=== PATIENT | male | born 1960 | race Caucasian/White ===

== ENCOUNTER 2024-11-13 14:30 | Emergency (ER) | payer OTHER, SELFPAY ==
--- NOTE | ~2024-11-13 | XR_ITS ---
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 RESULT: Lines, tubes, and devices: None. Lungs and pleura: Mild emphysematous/senescent change. Calcified left midlung granuloma. No focal co nsolidation, pleural effusion, or pneumothorax. Cardiomediastinal silhouette: Unremarkable. Other: No acute osseous or upper abdominal finding. IMPRESSION: No acute cardiopulmonary process. Reviewed, dictated and finalized at location K. MANAGER
--- OUTSIDE RECORDS SUMMARY | 2024-11-13 14:39 | XMS_ITS | Clinical Summary ---
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 Name Role Phone Unavailable Primary Care Provider Unavailabl e Allergies Active Allergy Reactions Criticality Noted Date Comments Penicillins Hives 06/27/2017 Sulfa Antibiotics Hives 06/27/2017 Medications predniSONE (DELTASONE) 10 MG Tablet Take 4 tabs po daily days 1-6, then 2 tabs po daily days 7-9, then 1 tab po daily days 10-12 33 Tab 06/27/2017 Active Social History Tobacco Use Types Packs/Day Years Used Date Smoking Tobacco: Former Smokeless Tobacco: Never Alcohol Use Standard Drinks/Week Comments Yes 0 (1 standard drink = 0.6 oz pur e alcohol) occasionally Sex and Gender Information Value Date Recorded Sex Assigned at Not on file Legal Sex Male 12:11 AM CDT Gender Identity Not on file Sexual Orientation Not on file Last Filed Vital Signs Vital Sign Reading Time Taken Comments Blood Pressure 137/86 06/27/2017 3:23 PM CDT Pulse 74 06/27/2017 3:23 PM CDT Temperature 36.7 C (98.1 F) 06/27/2017 3:23 PM CDT Respiratory Rate - - Oxygen Saturation 95% 06/27/2017 3:23 PM CDT Inhaled Oxygen Concentration - - Weight 108.9 kg (240 lb) 06/27/2017 3:23 PM CDT Height 175.3 cm (5' 9 ) 06/27/2017 3:23 PM CDT Body Mass Index 35.44 06/27/2017 3:23 PM CDT Plan of Treatment Not on file
--- OUTSIDE RECORDS SUMMARY | 2024-11-13 14:39 | XMS_ITS | Continuity of Care Document ---
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 It does not include entries that were removed or entered in error. Problem Status Onset Date Problem Type Date of Resolution Comments Source Carcinoma of colon Active Condition [facility] Hard of hearing Active Condition 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 Medications Combined list of outpatient medications from [facility] [place] facilities.Medications provided include 1) outpatient medications from the last 15 months, and 2) patient-reported medications. Medication Details Route Status Patient Instructions Prescription Expires Prescription Number Last Dispense Date Ordering Provider Order Date Order Qty Source ACETAMINOPH EN 325MG TAB TAKE ONE TABLET BY MOUTH QDAY PRN ORAL ACTIVE MERYL ERICKSON EODORE S 2019 [facility] CALCIUM CARBONATE 500MG TAB,CHEWABL E CHEW AND SWALLOW ONE TABLET BY MOUTH ONCE A DAY NEEDED ORAL ACTIVE DRE EODORE S 2019 [facility] FAMOTIDINE 20MG TAB TAKE ONE TABLET BY MOUTH TWICE A DAY NEEDED ORAL ACTIVE NUNO COELHO 2022 [facility] Allergies, Adverse Reactions, Alerts Combined list of allergies from [facility] [place] facilities. It does not include entries that were removed or entered in error. Substance Category Reaction Severity Reaction type Status Date Reported Comments Source DARUNAVIR Drug allergy (disorder) Urticaria active 8 [facility] Darunavir Drug allergy (disorder) Urticaria active 8 [facility] PENICILLIN Propensity to adverse reactions to drug (finding) Urticaria active 0 [facility] Penicillins Drug allergy (disorder) Urticaria active 8 [facility] PENICILLINS Drug allergy (disorder) Urticaria active 0 [facility] SULFA DRUGS Propensity to adverse reactions to drug (finding) Urticaria active 8 [facility] Immunizations Combined list of available immunizations from the Department of [facility] and [facility] facilities. Immunization Series Date Given Administered By Site Reaction Lot Number CVX Code Drug Salt Miner Status Comments Source TDAP 2017 115 complet ed Right Deltoid [facility] Results Combined list of recent chemistry, hematology and other laboratory results from [facility] and [facility], ranging from 15 months to all on record, depending upon the facility. Order Name Results Value Reference Range Date Interpretation Specimen Comments Source HGA1C HEMOGLOBIN A1C/HEMOGLO BIN.TOTAL IN BLOOD 5.8 4.0 - 6.0 11/13 Specimen Type: BLOOD Comment: No hemolysis noted. Ordering Provider: Janie COELHO Report Released Date/Time: Nov 13, 2022 01:21 PM Reporting Lab: [address] [id number] Performing Lab: [address] [id number] [facility] PROST. SPECIFIC AG.(PB-ST L) PROSTATE SPECIFIC AG [MASS/VOLUM E] IN SERUM OR PLASMA 2.357 ng/mL 0.000 - 4.000 11/13 Specimen Type: SERUM Comment: The listed sex of this patient may not be a typical indication for this test. Therefore, reference ranges or interpretiv e criteria listed may not be valid. Clinical correlation suggested. Ordering Provider: Janie COELHO Report Released Date/Time: Nov 13, 2022 01:21 PM Reporting Lab: [facility] [address] Performing Lab: [facility] [facility] [id number] DIVISION COMPREHEN SIVE METABOLIC PANEL CREATININE [MASS/VOLUM E] IN SERUM OR PLASMA 0.94 mg/dL 0.70 - 1.30 11/13 Specimen Type: PLASMA Comment: No hemolysis noted. Ordering Provider: Janie COELHO Report Released Date/Time: Nov 13, 2022 01:21 PM Reporting Lab: [facility] [address] [place] [address] Performing Lab: [facility] DIVISION COMPREHEN SIVE METABOLIC PANEL UREA NITROGEN [MASS/VOLUM E] IN SERUM OR PLASMA 15 mg/dL 9 - 25 11/13 Specimen Type: PLASMA Comment: No hemolysis noted. Ordering Provider: Janie COELHO Report Released Date/Time: Nov 13, 2022 01:21 PM Reporting Lab: [facility] [address] [place] [address] Performing Lab: [facility] [address] DIVISION COMPREHEN SIVE METABOLIC PANEL GLUCOSE [MASS/VOLUM E] IN SERUM OR PLASMA 92 mg/dL 72 - 99 11/13 Specimen Type: PLASMA Comment: No hemolysis noted. Ordering Provider: Janie COELHO Report Released Date/Time: Nov 13, 2022 01:21 PM Reporting Lab: [facility] [address] [place] [address] Performing Lab: [facility] [address] DIVISION COMPREHEN SIVE METABOLIC PANEL SODIUM [MOLES/VOLU ME] IN SERUM OR PLASMA 137 meq/L 136 - 145 11/13 Specimen Type: PLASMA Comment: No hemolysis noted. Ordering Provider: Janie COELHO Report Released Date/Time: Nov 13, 2022 01:21 PM Reporting Lab: [facility] [address] [place] [address] Performing Lab: [facility] DIVISION COMPREHEN SIVE METABOLIC PANEL POTASSIUM [MOLES/VOLU ME] IN SERUM OR PLASMA 4.1 meq/L 3.5 - 5.0 11/13 Specimen Type: PLASMA Comment: No hemolysis noted. Ordering Provider: Janie COELHO Report Released Date/Time: Nov 13, 2022 01:21 PM Reporting Lab: [facility] [address] [place] [address] Performing Lab: [facility] DIVISION COMPREHEN SIVE METABOLIC PANEL CHLORIDE [MOLES/VOLU ME] IN SERUM OR PLASMA 103 meq/L 98 - 107 11/13 Specimen Type: PLASMA Comment: No hemolysis noted. Ordering Provider: Janie COELHO Report Released Date/Time: Nov 13, 2022 01:21 PM Reporting Lab: [facility] [address] [place] [address] Performing Lab: [facility] DIVISION COMPREHEN SIVE METABOLIC PANEL CARBON DIOXIDE, TOTAL [MOLES/VOLU ME] IN SERUM OR PLASMA 27 meq/L 22 - 31 11/13 Specimen Type: PLASMA Comment: No hemolysis noted. Ordering Provider: Janie COELHO Report Released Date/Time: Nov 13, 2022 01:21 PM Reporting Lab: [facility] [address] [place] [address] Performing Lab: [facility] [address] DIVISION COMPREHEN SIVE METABOLIC PANEL CALCIUM [MASS/VOLUM E] IN SERUM OR PLASMA 10.3 mg/dL 8.4 - 10.4 11/13 Specimen Type: PLASMA Comment: No hemolysis noted. Ordering Provider: Janie COELHO Report Released Date/Time: Nov 13, 2022 01:21 PM Reporting Lab: [facility] [address] [place] [address] Performing Lab: [facility] [address] DIVISION COMPREHEN SIVE METABOLIC PANEL PROTEIN [MASS/VOLUM E] IN SERUM OR PLASMA 7.8 g/dL 6.0 - 8.6 11/13 Specimen Type: PLASMA Comment: No hemolysis noted. Ordering Provider: Janie COELHO Report Released Date/Time: Nov 13, 2022 01:21 PM Reporting Lab: [facility] [address] [place] [address] Performing Lab: [facility] DIVISION COMPREHEN SIVE METABOLIC PANEL ALBUMIN [MASS/VOLUM E] IN SERUM OR PLASMA 4.5 g/dL 3.4 - 5.0 11/13 Specimen Type: PLASMA Comment: No hemolysis noted. Ordering Provider: Janie COELHO Report Released Date/Time: Nov 13, 2022 01:21 PM Reporting Lab: [facility] [place] [address] Performing Lab: [facility] DIVISION COMPREHEN SIVE METABOLIC PANEL BILIRUBIN.T OTAL [MASS/VOLUM E] IN SERUM OR PLASMA 0.6 mg/dL 0.2 - 1.2 11/13 Specimen Type: PLASMA Comment: No hemolysis noted. Ordering Provider: Janie COELHO Report Released Date/Time: Nov 13, 2022 01:21 PM Reporting Lab: [facility] [address] [place] [address] Performing Lab: [facility] [address] [place] [id number] DIVISION COMPREHEN SIVE METABOLIC PANEL ALKALINE PHOSPHATASE [ENZYMATIC ACTIVITY/VO LUME] IN SERUM OR PLASMA 76 U/L 40 - 150 11/13 Specimen Type: PLASMA Comment: No hemolysis noted. Ordering Provider: Janie COELHO Report Released Date/Time: Nov 13, 2022 01:21 PM Reporting Lab: [facility] [place] [address] Performing Lab: [facility] DIVISION COMPREHEN SIVE METABOLIC PANEL ASPARTATE AMINOTRANSF ERASE [ENZYMATIC ACTIVITY/VO LUME] IN SERUM OR PLASMA 32 U/L 5 - 34 11/13 Specimen Type: PLASMA Comment: No hemolysis noted. Ordering Provider: Janie COELHO Report Released Date/Time: Nov 13, 2022 01:21 PM Reporting Lab: [facility] [place] [address] Performing Lab: [facility] DIVISION COMPREHEN SIVE METABOLIC PANEL ALANINE AMINOTRANSF ERASE [ENZYMATIC ACTIVITY/VO LUME] IN SERUM OR PLASMA 22 U/L 8 - 40 11/13 Specimen Type: PLASMA Comment: No hemolysis noted. Ordering Provider: Janie COELHO Report Released Date/Time: Nov 13, 2022 01:21 PM Reporting Lab: [facility] [place] [address] Performing Lab: [facility] DIVISION COMPREHEN SIVE METABOLIC PANEL GLOMERULAR FILTRATION RATE/1.73 SQ M.PREDICTED [VOLUME RATE/AREA] IN SERUM, PLASMA OR BLOOD BY CREATININE- BASED FORMULA (CKD-EPI 2020) 90.52 11/13 Specimen Type: PLASMA Comment: No hemolysis noted. Ordering Provider: Janie COELHO Report Released Date/Time: Nov 13, 2022 01:21 PM Reporting Lab: [facility] [place] [address] Performing Lab: [facility] [address] DIVISION CBC LEUKOCYTES [#/VOLUME] IN BLOOD BY AUTOMATED COUNT 9.7 10*3/u L 3.6 - 11.2 11/13 Specimen Type: BLOOD No comment entered. Ordering Provider: Janie COELHO Report Released Date/Time: Nov 13, 2022 01:21 PM Reporting Lab: [facility] [place] [address] Performing Lab: [facility] [address] DIVISION CBC ERYTHROCYTE S [#/VOLUME] IN BLOOD BY AUTOMATED COUNT 4.56 10*6/u L 4.10 - 5.70 11/13 Specimen Type: BLOOD No comment entered. Ordering Provider: Janie COELHO Report Released Date/Time: Nov 13, 2022 01:21 PM Reporting Lab: [facility] [place] [address] Performing Lab: [facility] [address] DIVISION CBC HEMOGLOBIN [MASS/VOLUM E] IN BLOOD 14.4 g/dL 13.1 - 16.8 11/13 Specimen Type: BLOOD No comment entered. Ordering Provider: Janie COELHO Report Released Date/Time: Nov 13, 2022 01:21 PM Reporting Lab: [facility] [place] [address] Performing Lab: [facility] DIVISION CBC HEMATOCRIT [VOLUME FRACTION] OF BLOOD 42.4 38.2 - 48.4 11/13 Specimen Type: BLOOD No comment entered. Ordering Provider: Janie COELHO Report Released Date/Time: Nov 13, 2022 01:21 PM Reporting Lab: [facility] [place] [address] Performing Lab: [facility] [address] DIVISION CBC MCV [ENTITIC VOLUME] BY AUTOMATED COUNT 93.0 fL 80.0 - 100.0 11/13 Specimen Type: BLOOD No comment entered. Ordering Provider: Janie COELHO Report Released Date/Time: Nov 13, 2022 01:21 PM Reporting Lab: [facility] [place] [address] Performing Lab: [facility] DIVISION CBC MCH [ENTITIC MASS] BY AUTOMATED COUNT 31.6 pg 27.0 - 34.0 11/13 Specimen Type: BLOOD No comment entered. Ordering Provider: Janie COELHO Report Released Date/Time: Nov 13, 2022 01:21 PM Reporting Lab: [facility] [place] [address] Performing Lab: [facility] DIVISION CBC MCHC [MASS/VOLUM E] BY AUTOMATED COUNT 34.0 g/dL 33.0 - 36.0 11/13 Specimen Type: BLOOD No comment entered. Ordering Provider: Janie COELHO Report Released Date/Time: Nov 13, 2022 01:21 PM Reporting Lab: [facility] [place] [address] Performing Lab: [facility] DIVISION CBC PLATELETS [#/VOLUME] IN BLOOD BY AUTOMATED COUNT 323 10*3/u L 150 - 400 11/13 Specimen Type: BLOOD No comment entered. Ordering Provider: Janie COELHO Report Released Date/Time: Nov 13, 2022 01:21 PM Reporting Lab: [facility] [place] [address] Performing Lab: [facility] DIVISION CBC PLATELET MEAN VOLUME [ENTITIC VOLUME] IN BLOOD BY AUTOMATED COUNT 9.1 fL 7.5 - 11.2 11/13 Specimen Type: BLOOD No comment entered. Ordering Provider: Janie COELHO Report Released Date/Time: Nov 13, 2022 01:21 PM Reporting Lab: [facility] [place] [address] Performing Lab: [facility] DIVISION CBC ERYTHROCYTE DISTRIBUTIO N WIDTH [RATIO] BY AUTOMATED COUNT 12.4 11.8 - 15.1 11/13 Specimen Type: BLOOD No comment entered. Ordering Provider: Janie COELHO Report Released Date/Time: Nov 13, 2022 01:21 PM Reporting Lab: [facility] [place] [address] Performing Lab: [facility] DIVISION CBC LYMPHOCYTES /100 LEUKOCYTES IN BLOOD BY AUTOMATED COUNT 32 11/13 Specimen Type: BLOOD No comment entered. Ordering Provider: Janie COELHO Report Released Date/Time: Nov 13, 2022 01:21 PM Reporting Lab: [facility] [place] [address] Performing Lab: [facility] DIVISION CBC MONOCYTES/1 00 LEUKOCYTES IN BLOOD BY AUTOMATED COUNT 8 11/13 Specimen Type: BLOOD No comment entered. Ordering Provider: Janie COELHO Report Released Date/Time: Nov 13, 2022 01:21 PM Reporting Lab: [facility] [place] [address] Performing Lab: [facility] DIVISION CBC NEUTROPHILS /100 LEUKOCYTES IN BLOOD BY AUTOMATED COUNT 57 11/13 Specimen Type: BLOOD No comment entered. Ordering Provider: Janie COELHO Report Released Date/Time: Nov 13, 2022 01:21 PM Reporting Lab: [facility] [place] [address] Performing Lab: [facility] DIVISION CBC EOSINOPHILS /100 LEUKOCYTES IN BLOOD BY AUTOMATED COUNT 2 11/13 Specimen Type: BLOOD No comment entered. Ordering Provider: Janie COELHO Report Released Date/Time: Nov 13, 2022 01:21 PM Reporting Lab: [facility] [place] [address] Performing Lab: [facility] DIVISION CBC BASOPHILS/1 00 LEUKOCYTES IN BLOOD BY AUTOMATED COUNT 1 11/13 Specimen Type: BLOOD No comment entered. Ordering Provider: Janie COELHO Report Released Date/Time: Nov 13, 2022 01:21 PM Reporting Lab: [facility] [place] [address] Performing Lab: [facility] DIVISION CBC LYMPHOCYTES [#/VOLUME] IN BLOOD BY AUTOMATED COUNT 3.08 10*3/u L 0.77 - 4.50 11/13 Specimen Type: BLOOD No comment entered. Ordering Provider: Janie COELHO Report Released Date/Time: Nov 13, 2022 01:21 PM Reporting Lab: [facility] [place] [address] Performing Lab: [facility] DIVISION CBC MONOCYTES [#/VOLUME] IN BLOOD BY AUTOMATED COUNT 0.77 10*3/u L 0.19 - 1.50 11/13 Specimen Type: BLOOD No comment entered. Ordering Provider: Janie COELHO Report Released Date/Time: Nov 13, 2022 01:21 PM Reporting Lab: [facility] [place] [address] Performing Lab: [facility] DIVISION CBC NEUTROPHILS [#/VOLUME] IN BLOOD BY AUTOMATED COUNT 5.48 10*3/u L 2.10 - 8.00 11/13 Specimen Type: BLOOD No comment entered. Ordering Provider: Janie COELHO Report Released Date/Time: Nov 13, 2022 01:21 PM Reporting Lab: [facility] [place] [address] Performing Lab: [facility] DIVISION CBC EOSINOPHILS [#/VOLUME] IN BLOOD BY AUTOMATED COUNT 0.19 10*3/u L 0.00 - 0.60 11/13 Specimen Type: BLOOD No comment entered. Ordering Provider: Janie COELHO Report Released Date/Time: Nov 13, 2022 01:21 PM Reporting Lab: [facility] [place] [address] Performing Lab: [facility] DIVISION CBC BASOPHILS [#/VOLUME] IN BLOOD BY AUTOMATED COUNT 0.07 10*3/u L 0.00 - 0.20 11/13 Specimen Type: BLOOD No comment entered. Ordering Provider: Janie COELHO Report Released Date/Time: Nov 13, 2022 01:21 PM Reporting Lab: [facility] [id number] Performing Lab: [facility] [id number] [facility] Encounters Combined list of: 1) Encounters from [facility] facilities going backup to the last 18 months, not all [place] inpatient encounters are included; 2) Encounters from the Department [facility] facilities going backup to 280 months. Location Location Details Encounter Type Encounter Number Reason For Visit Attending Provider ADM Date DC Date Status Disposition Source [facility] Outpatient Encounter [id number] [facility] HEARING AID CHECK BINAURAL [id number] Diagnos is: ICD-10- CM H90.3 Sensori neural hearing loss, WILBERT Wang 10/19 [facility] Social History Combined list of available smoking, tobacco, and other social history from Department of [facility] and [facility] facilities. Social History Type Response Date Comment Sourc e Tobacco smoking status NHIS [place]-TOBACCO FORMER USER 11/13/[address] [facility] History of tobacco use [place]-TOBACCO QUIT 5 TO < 15 YRS 11/13/[address] [facility] History of tobacco use [place]-TOBACCO FORMER USER 11/10/[address] [facility] History of tobacco use QUIT TOBACCO >12 MO and <7 YRS AGO 06/03/[address] [facility] This section is an empty social history section. DoD Advance Directives List of completed, amended, or rescinded Advance Directives on record at Department [facility] facilities. An actual copy of the Directive is not included. Date Advance Directive Provider Source 06/01/2020 ADVANCE DIRECTIVE DISCUSSION XAVIER BLOCK [facility]
[2024-11-13 14:49] VITALS: BP 130/69; PULSE 77; RESP 20; TEMP 36.4; O2SAT 97
--- NOTE | 2024-11-13 16:39 | ED.GENADULT ---
HPI - General Adult General Chief complaint: Upper Respiratory Infection Stated complaint: cough,breathing prob Source: patient Mode of arrival: ambulatory Limitations: no limitations History of Present Illness HPI narrative: Patient presents for evaluation of a cough for the last 2 weeks. He has associated shortness of breath. He initially had a fever but that resolved. He denies any chills, nausea, vomiting, abdominal pain. He had some diarrhea but took Imodium. That seemed to work. He is not taking any [id number] medications to assist with this cough. He has been around several other sick individuals who have similar symptoms. He is a former smoker. Related Data Allergies Allergy/AdvReac Type Severity Reaction Status Date / Time Penicillins Allergy Unknown Unknown Verified 11/13/24 14:49 Sulfa (Sulfonamide Allergy Unknown Unknown Verified 11/13/24 14:49 Antibiotics) Review of Systems Review of Systems: CONSTITUTIONAL: Denies fever, chills, or sweats. EYES: Denies visual changes, redness, or discharge. ENT: Denies rhinorrhea, congestion, sore throat, or otalgia. CARDIOVASCULAR: Denies chest pain, palpitations, or edema. RESPIRATORY: Reports cough and SOB. GASTROINTESTINAL: Reports recent diarrhea, now resolved. Denies abdominal pain, nausea, vomiting GENITOURINARY: Denies dysuria or hematuria. SKIN: Denies rash or itching. MUSCULOSKELETAL: Denies back pain, joint pain, or myalgia. NEUROLOGIC: Denies headache, numbness, dizziness, or weakness. PSYCHIATRIC: Denies anxiety or depression. PMFSH Past Medical History Medical History (Updated 11/13/24 @ 17:10 by Ulises Chu, JEWELL, ) No pertinent past medical history Surgical History Surgical History (Updated 11/13/24 @ 16:42 by JEWELL Kirk, ) No pertinent past surgical history Family History Family History Mother Family history non-contributory Social History Social History Smoking status: Former smoker Tobacco type: cigarettes Substance use: never Gender identity (if verbalized by the patient): Male Spiritual care concerns: No Exam Narrative: GENERAL: Well-appearing, well-nourished, and in no acute distress. HEAD: Normocephalic, atraumatic. EYES: PERRLA and EOMI. ENT: Nares clear, no rhinorrhea or epistaxis. Mucous membranes moist. Oropharynx without tonsillar hypertrophy exudate or other lesions. Bilateral TMs pearly [place]ina nonbulging NECK: Supple. No adenopathy or masses. No carotid bruits or JVD CHEST: Wheezing noted bilaterally. Cough present on exam HEART: Regular rate and rhythm. No murmur heard. Normal peripheral pulses. ABDOMEN: Soft, nontender, nondistended, normal active bowel sounds. EXTREMITIES: Normal range of motion. No edema. SKIN: Warm, dry, no rash. NEURO: No focal deficits. Alert and oriented x3. PSYCH: Normal mood and affect. Course Course Emergency Course: This is a 64-year-old male who presented for evaluation of a cough. Chest x-ray negative. Exam is consistent with acute viral syndrome. Will DC with prednisone and albuterol. Dextromethorphan should help with cough. Increase hydration. Follow up with primary provider. Go to the ER for worsening symptoms. Patient in agreement with plan of care. Level of Care: Express Care Visit Vital Signs Vital signs: Vital Signs Temperature 36.4 C L 11/13/24 14:49 Pulse Rate 77 11/13/24 14:49 Respiratory Rate 20 11/13/24 14:49 Blood Pressure 130/69 11/13/24 14:49 Pulse Oximetry 97 11/13/24 14:49 Oxygen Delivery Room Air 11/13/24 14:49 Temperature 36.4 C L 11/13/24 14:49 Pulse Rate 77 11/13/24 14:49 Respiratory Rate 20 11/13/24 14:49 Blood Pressure 130/69 11/13/24 14:49 Pulse Oximetry 97 11/13/24 14:49 Oxygen Delivery Room Air 11/13/24 14:49 Medical Decision Making Vital Signs Vital Signs: Vital Signs Temperature 36.4 C L 11/13/24 14:49 Pulse Rate 77 11/13/24 14:49 Respiratory Rate 20 11/13/24 14:49 Blood Pressure 130/69 11/13/24 14:49 Pulse Oximetry 97 11/13/24 14:49 Oxygen Delivery Room Air 11/13/24 14:49 Temperature 36.4 C L 11/13/24 14:49 Pulse Rate 77 11/13/24 14:49 Respiratory Rate 20 11/13/24 14:49 Blood Pressure 130/69 11/13/24 14:49 Pulse Oximetry 97 11/13/24 14:49 Oxygen Delivery Room Air 11/13/24 14:49 Imaging Data Radiologist's impression: EXAMINATION: XR chest 2V Exam Date/Time: 11/13/2024 16:40 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 RESULT: Lines, tubes, and devices: None. Lungs and pleura: Mild emphysematous/senescent change. Calcified left midlung granuloma. No focal consolidation, pleural effusion, or pneumothorax. Cardiomediastinal silhouette: Unremarkable. Other: No acute osseous or upper abdominal finding. IMPRESSION: No acute cardiopulmonary process. Discharge Plan Discharge Clinical Impression: Upper respiratory infection, viral Patient Disposition: Home, Self-Care Condition: Stable Instructions: Antibiotic Form, Upper Respiratory Infection (DC), Viral Syndrome (ED) Additional Instructions: DEXTROMETHOPHAN (DELSYM) SHOULD HELP WITH YOUR COUGH INCREASE FLUID INTAKE Patient Language: [place] Prescriptions: New prednisone 50 mg tablet 50 mg PO DAILY Qty: 5 0RF albuterol sulfate [Ventolin HFA] 90 mcg/actuation HFA aerosol inhaler 2 puff inhalation QID PRN (Reason: shortness of breath or wheezing) Qty: 8.5 0RF Follow-up/Referrals: [facility] [Primary Care Provider] - Time of Disposition: 17:11
== END 2024-11-13 17:16 | disposition home or self-care (01) ==
PROVIDERS: Emergency Provider Nurse Practitioner
DX: J06.9 Acute upper respiratory infection, unspecified (principal); Z87.891 Personal history of nicotine dependence
CPT/HCPCS: 71046; 99203; G0463